=== PATIENT | female | born 1990 | race Caucasian/White ===

== ENCOUNTER 2023-09-27 19:52 | Emergency (ER) | payer BC, SELFPAY ==
[2023-09-27 19:57] VITALS: BP 132/87
--- NOTE | 2023-09-27 21:04 | ED.GENMED ---
History of Present Illness
General
Chief Complaint: Skin Problem
Source: patient and significant other
Exam Limitations: none
Time Seen by Provider: 09/27/23 20:26
Nursing documentation reviewed up to this point in time: agreed with
Travel History
Have you had any contact with someone who has COVID-19?: No
Do you have any symptoms of coronavirus? Fever > 100 degrees, chills, cough, shortness of breath, sore throat, loss of taste or smell, muscle aches, or headache?: No
History of Present Illness
History of Present Illness:
Patient is a 33-year-old female who denies significant past medical history who presents to the emergency department accompanied by a friend for evaluation of pain, swelling, and redness to the lateral aspect of her left pinky toe. Patient reports
that this initially started in July, shortly after she had a pedicure where she did have some bleeding. Patient reports that she was seen at an urgent care facility and they prescribed her Bactrim DS. Patient followed up with her primary care
provider and the area appeared to be healing. Patient reports that then it started to become more red and swollen again. Patient reports it was particularly bad this week, prompting her to go to the urgent care facility again. Patient reports
they prescribed her doxycycline and mupirocin today which she has not yet started. Patient decided to come to the emergency department for further evaluation due to the pain. Patient reports that she does not have pain when she is at rest, it is
only when she is bearing weight. Patient admits that she works for [employer] and is on her feet all day long. Patient denies any streaking redness. Patient denies any fevers or chills. Patient reports that she wears comfortable sneakers during the
day. Patient denies she is diabetic.
Past History
Past History
ED Past Medical History: None
ED Past Surgical History: Other (Excision of ganglion cyst)
Patient has exhibited threatening behavior?: No
Social History
Tobacco: Non-smoker
Alcohol: None
Drug: Marijuana
Review of Systems
Review of Systems
Allergies reviewed?: Yes
All Other Systems: ROS reviewed and negative except as documented in HPI and ROS
Constitutional: Reports no symptoms; Denies fever or chills
Musculoskeletal: Reports other (left fifth toe pain, swelling, redness)
Skin: Reports other (redness to the left fifth toe)
Neurological: Denies weakness or numbness
Hematologic/Lymphatic: Denies bleeding
Phy Exam
General Physical Exam
General Presentation: well appearing and no apparent distress
General age: appears stated age
General Skin: warm and dry
General Habitus: normal
General Mental: alert
General Hydration: appears well hydrated
ENT Exam
ENT Exam: EOMI
Pulmonary Exam
Pulmonary Exam: no respiratory distress
Musculoskeletal Exam
Musculoskeletal Exam: other (small area of erythema to the lateral aspect of the left fifth toe with mild ttp, there is no fluctuance or drainable collection, there is no streaking redness, the distal aspect of the toe is warm and well-perfused,
sensation is intact to light touch distally)
Psychiatric Exam
Psychiatric Exam: normal mood/affect
Course
Orders/Labs/Results
Orders:
Orders
09/27/23 20:55
Foot, Left 3 View [CR Foot - Left Min 3 Views] Urgent
Comment:
Reason For Exam: left fifth toe rednesss/swelling
Vital Signs
Initial and Last Documented VS:
Initial Vital Signs
Temp Pulse Resp BP Pulse Ox
98.8 F 91 18 132/87 97
09/27/23 19:57 09/27/23 19:57 09/27/23 19:57 09/27/23 19:57 09/27/23 19:57
Last Documented Vital Signs
Temp Pulse Resp BP Pulse Ox
98.8 F 81 18 134/81 97
09/27/23 19:57 09/27/23 22:15 09/27/23 19:57 09/27/23 22:15 09/27/23 19:57
*Critical Care Note
Total Time (30-74mins, 75-104mins- exclusive of procedures): Not Applicable
Update Note
Update Note:
Patient is a 33-year-old female who denies significant past medical history who presents to the emergency department for evaluation of left fifth toe pain, swelling, redness. Patient reports that symptoms actually started 2 months ago but seemed to
improve transiently while she was on Bactrim DS. 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 Patient denies systemic symptoms such as fevers or chills. On arrival, patient's vital signs are
stable, she is afebrile. On exam, patient is well-appearing, she is in no acute distress, there is a small area of well-circumscribed erythema with mild tenderness to palpation, the patient is neurovascularly intact. Radiographs demonstrate no
abnormality. Patient already prescribed doxycycline and mupirocin which she was advised to take. Patient has an appointment with podiatry next week which she was encouraged to keep. Patient is safe for discharge to home with return precautions,
she expressed understanding of the plan and agreed.
ED Attending Note
-
Portions of this chart may have been created with voice recognition software.� Occasional wrong word or��sound alike� substitutions may have occurred due to the inherent limitations of voice recognition software.
Discharge Plan
Departure
Patient Disposition: Home (Routine Discharge)
Date of Disposition: 09/27/23
Time of Disposition: 22:01
Patient with high blood pressure during this ER visit?: Yes
Condition: Good
Covid-19: Not Applicable
Discharge Problem:
Pain in toe of left foot
Instructions: Cellulitis (Skin Infection), Adult (DC)
Referrals:
With the, value stream manager [Other] - Follow up in 1 week
Stand Alone Forms: Return to Work
Activity Restrictions/Additional Instructions:
You were seen in the emergency department for evaluation of left fifth toe pain, redness, and swelling. You had x-rays of the foot which demonstrate no abnormalities. The exact cause of your pain is unknown, it could be due to an infection of the
skin. Please use the antibiotics that were prescribed. Please rest and elevate the foot. Please follow-up with the value stream manager as scheduled. Please return to the emergency department for increasing pain, swelling, redness, streaking redness,
fever greater than 100.4F, or for any other worsening or concerning symptoms.
Interventions
Interventions:
*Risk Screen - Suicide Last Done: 09/27/23 19:57
*General Assessment Last Done: 09/27/23 19:57
*Neglect/Abuse Screening Last Done: 09/27/23 19:57
*Nursing Disposition Last Done: 09/27/23 22:15
ED-Skin Assessment Last Done: 09/27/23 21:07
Discharge Date and Time
Discharge Date/Time: 09/27/23 22:16
Print Language: CITIZEN [place]
[2023-09-27 21:44] VITALS: BP 134/81
[2023-09-27 22:15] VITALS: BP 134/81
== END 2023-09-27 22:16 | disposition home or self-care (01) ==
LOC: EMR 19:52
PROVIDERS: EMERGENCY PHYSICIAN Emergency Medicine; FAMILY PHYSICIAN Nurse Practitioner Adult Health
DX: M79.675 Pain in left toe(s) (principal); M79.89 Other specified soft tissue disorders; Z88.0 Allergy status to penicillin
CPT/HCPCS: 99283; 73630